=== PATIENT | female | born 2005 | race Caucasian/White ===

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

== ENCOUNTER 2024-01-03 06:00 | Day surgery (SDC) | payer BC ==
[~2024-01-03] VITALS: Ht 167.6 cm; Wt 61.4 kg
[~2024-01-03 06:00] MED LIST: ETON68IM SC; LAMO25TA4 PO; METH1TAB13 PO; PENT10CA PO; PHEN1TAB73 PO; SPIR50TA4 PO
[2024-01-03] MEDS ORDERED: MOXI400T11 PO (07:02)
[2024-01-03] MEDS ORDERED: NITR100C2 PO (07:02)
[2024-01-03] MEDS ORDERED: LIDOCAINE 2% 100MG/5ML SDV (FOR ANES.) As Ordered ONE (07:13)
[2024-01-03] MEDS ORDERED: propofoL 200 MG/20 ML VIAL As Ordered ONE (07:13)
[2024-01-03] MEDS ORDERED: fentaNYL 100 MCG/2 ML INJECTION As Ordered ONE (07:13)
[2024-01-03] MEDS ORDERED: MIDAZOLAM INJ 2MG/2ML VIAL As Ordered ONE (07:13)
[2024-01-03] MEDS ORDERED: KETOROLAC 60MG 2ML VIAL As Ordered ONE (07:16)
[2024-01-03] MEDS ORDERED: ONDANSETRON 4MG 2ML VIAL As Ordered ONE (07:16)
[2024-01-03] MEDS ORDERED: ceFAZolin 2 GM/D5W 50 ML IV BAG As Ordered ONE (07:38)
[2024-01-03] MEDS: LR 1,000 ML IV SCH (07:40)
[2024-01-03] MEDS: ceFAZolin SOD 2 GM in IV 1 EA IV ONE (07:50)
[2024-01-03] MEDS ORDERED: TRIMETHOPRIM/SULFAMETHOXAZOLE 80 MG in D5W 100 ML IV ONE (08:00)
[2024-01-03] MEDS: LIDOCAINE 1% MDV 50ML VIAL As Ordered ONE (09:00)
[2024-01-03] MEDS: LIDOCAINE 2% 5ML JELLY UROJET As Ordered ONE (09:00)
[2024-01-03] MEDS: PHENAZOPYRIDINE 100 MG TAB PO ONE (09:12)
[2024-01-03] MEDS: MORPHINE 2 MG/ML 1ML VIAL IV ONE (09:22)
[2024-01-03 09:56] VITALS: BP 89/55; TEMP 98.2; O2SAT 97
== END 2024-01-03 10:18 | disposition home or self-care (01) ==
LOC: M SDC 06:00
PROVIDERS: ATTEND Specialist
DX: N30.10 Interstitial cystitis (chronic) without hematuria (principal); J45.909 Unspecified asthma, uncomplicated; F31.9 Bipolar disorder, unspecified; Z79.899 Other long term (current) drug therapy; Z79.3 Long term (current) use of hormonal contraceptives; Z90.49 Acquired absence of other specified parts of digestive tract; Z87.891 Personal history of nicotine dependence
CPT/HCPCS: 52204; 81025; 88305; J0690; J1100; J1885; J2250; J2405; J3010

== ENCOUNTER → 2024-01-17 | Outpatient (REF) | payer BC ==
[~2024-01-17] MED LIST changes: +MOXI400T11 PO; +NITR100C2 PO
== END ==
LOC: M SMT 16:52
PROVIDERS: ATTEND Physician Assistant
DX: Z86.19 Personal history of other infectious and parasitic diseases (principal)